=== PATIENT | female | born 1955 | race African-American/Black ===

== ENCOUNTER 2017-03-13 16:54 | Emergency (ER) | payer MEDICARE, MEDICAID ==
[~2017-03-13] VITALS: Ht 162.6 cm; Wt 70.0 kg
[~2017-03-13 16:54] MED LIST: ASCO100T12; DIOVAN; HYDROCODONE; LASIX; OMEPRAZOLE; OXYCODONE; POTASSIUM CHLORIDE; VITAMIN B12
[2017-03-13 17:04] VITALS: BP 155/82
== END 2017-03-13 18:11 | disposition left against medical advice (07) ==
LOC: ER 16:54
DX: R06.02 Shortness of breath (principal); Z53.21 Procedure and treatment not carried out due to patient leaving prior to being seen by health care provider

== ENCOUNTER 2017-06-13 12:34 | Emergency (ER) | payer MEDICARE, MEDICAID ==
[~2017-06-13] VITALS: Ht 167.6 cm; Wt 92.0 kg
[2017-06-13] MEDS ORDERED: IBUPROFEN 800MG TABLET PO ONE (13:30)
[2017-06-13 14:43] VITALS: BP 110/66
== END 2017-06-13 14:50 | disposition home or self-care (01) ==
LOC: ER 12:54
DX: M25.511 Pain in right shoulder (principal); K21.9 Gastro-esophageal reflux disease without esophagitis; M48.00 Spinal stenosis, site unspecified; Z96.649 Presence of unspecified artificial hip joint; Z96.659 Presence of unspecified artificial knee joint
CPT/HCPCS: 73030; 99284

== ENCOUNTER 2018-10-19 21:26 | Emergency (ER) | payer MEDICARE, MEDICAID ==
[~2018-10-19] VITALS: Ht 167.6 cm; Wt 91.0 kg
[~2018-10-19 21:26] MED LIST changes: +CIPR-264 PO; +GABA-531 PO; +LANS15CA12 PO; -LASIX; +NAPR220C15 PO
[2018-10-20 01:24] LABS: CHLORIDE 105 mEq/L (98-107)
[2018-10-20] MEDS ORDERED: HYDROCHLOROTHIAZIDE 12.5MG CAPSULE PO ONE (01:30)
[2018-10-20 01:34] LABS: BASOPHILS % 0.7 % (0.0-2.0); EOSINOPHILS % 0.1 % (0.0-5.0); HEMATOCRIT. 41.7 % (36.0-48.0); HEMOGLOBIN. 13.6 g/dL (12.0-16.0); LYMPHOCYTES % 19.5 % (20.0-50.0); MEAN CORPUSCULAR HEMOGLOBIN 27.7 pg (28.0-32.0); MEAN CORPUSCULAR VOLUME 84.6 fL (81.0-99.0); MEAN PLATELET VOLUME 10.8 fl (7.4-10.4); MONOCYTES % 5.7 % (2.0-8.0); PLATELET 210 x1000/uL (130-400); RED BLOOD CELL COUNT 4.93 mill/uL (4.2-5.4); RED CELL DISTRIBUTION WIDTH 15.6 % (11.6-14.6)
[2018-10-20] MEDS ORDERED: CLONIDINE 0.1MG TABLET PO ONE (02:00)
[2018-10-20 02:43] LABS: CLARITY URINE CLEAR (CLEAR); COLOR URINE YELLOW (YELLOW); KETONES URINE NEGATIVE (NEGATIVE); LEUKOCYTE ESTERASE URINE TRACE (NEGATIVE); NITRITE URINE NEGATIVE (NEGATIVE); OCCULT BLOOD URINE 1+ (NEGATIVE); PROTEIN URINE NEGATIVE (NEGATIVE); SPECIFIC GRAVITY URINE 1.021 (1.005-1.030); UROBILINOGEN URINE 0.2 E.U./dL (0.2-1.0)
[2018-10-20] MEDS ORDERED: DIPHENHYDRAMINE 50MG CAPSULE ONE (04:58)
[2018-10-20] MEDS ORDERED: ACETAMINOPHEN 325MG TABLET PO ONE (06:30)
[2018-10-20 08:16] VITALS: BP 177/78
[2018-10-20] MEDS ORDERED: LORATADINE 10MG TABLET PO ONE (09:00)
== END 2018-10-20 08:26 | disposition home or self-care (01) ==
LOC: ER 10-20 01:45
DX: I10 Essential (primary) hypertension (principal); M19.90 Unspecified osteoarthritis, unspecified site; K21.9 Gastro-esophageal reflux disease without esophagitis; Z88.2 Allergy status to sulfonamides; Z96.659 Presence of unspecified artificial knee joint
CPT/HCPCS: 36415; 80048; 81003; 85025; 99283; Q0163

== ENCOUNTER 2020-03-06 13:35 | Inpatient (IN) | payer MEDICARE, MEDICAID ==
[~2020-03-06] VITALS: Ht 167.6 cm; Wt 104.3 kg
[2020-03-06 19:06] LABS: BASOPHILS % 0.7 % (0.0-2.0); EOSINOPHILS % 0.1 % (0.0-5.0); HEMATOCRIT. 41.4 % (36.0-48.0); HEMOGLOBIN. 13.6 g/dL (12.0-16.0); MEAN CORPUSCULAR HEMOGLOBIN 27.9 pg (28.0-32.0); MEAN PLATELET VOLUME 10.1 fl (7.4-10.4); MONOCYTES % 6.3 % (2.0-8.0); NEUTROPHILS % 58.9 % (40.0-76.0); PLATELET 217 x1000/uL (130-400); RED BLOOD CELL COUNT 4.87 mill/uL (4.2-5.4); RED CELL DISTRIBUTION WIDTH 15.7 % (11.6-14.6)
[2020-03-06 19:25] LABS: CHLORIDE 99 mEq/L (98-107)
[2020-03-06] MEDS ORDERED: HYDROCODONE/ACETAMINOPHEN 5/325MG TABLET PO ONE (19:30)
[2020-03-06] MEDS ORDERED: AZITHROMYCIN 500 MG TABLET PO ONE (19:30)
[2020-03-06 19:34] LABS: BETA HYDROXYBUTYRATE 1.3 mMol/L (0.0-0.3)
[2020-03-07 00:36] LABS: CLARITY URINE CLEAR (CLEAR); COLOR URINE DARK YELLOW (YELLOW); KETONES URINE 2+ (NEGATIVE); LEUKOCYTE ESTERASE URINE TRACE (NEGATIVE); NITRITE URINE NEGATIVE (NEGATIVE); OCCULT BLOOD URINE NEGATIVE (NEGATIVE); PH URINE 5.5 (4.5-8.0); PROTEIN URINE 2+ (NEGATIVE); SPECIFIC GRAVITY URINE 1.027 (1.005-1.030); UROBILINOGEN URINE 0.2 E.U./dL (0.2-1.0)
[2020-03-07 00:49] LABS: *AMPHETAMINES SCREEN URINE NEGATIVE (NEGATIVE); CANNABINOID URINE SCREEN NEGATIVE (NEGATIVE)
[2020-03-07 00:50] LABS: *BARBITURATES SCREEN URINE NEGATIVE (NEGATIVE); *BENZODIAZEPINES SCREEN URINE NEGATIVE (NEGATIVE); *COCAINE SCREEN URINE NEGATIVE (NEGATIVE); METHADONE URINE SCREEN NEGATIVE (NEGATIVE); OPIATES URINE SCREEN PRESUMTIVE POSITIVE (NEGATIVE); PHENCYCLIDINE URINE SCREEN NEGATIVE (NEGATIVE)
[2020-03-07] MEDS ORDERED: CLONIDINE 0.1MG TABLET PO PRN (01:45)
[2020-03-07] MEDS ORDERED: MAGNESIUM/ALUMINUM HYDROXIDE/SIMETHICONE 30ML UDC PO PRN (01:45)
[2020-03-07] MEDS: HYDROCODONE/ACETAMINOPHEN 5/325MG TABLET PO PRN ×2 (01:47→12:43)
[2020-03-07] MEDS ORDERED: CEFTRIAXONE 1 G PREMIX 50 ML IV SCH (02:00)
[2020-03-07] MEDS: ONDANSETRON HCL 4MG/2ML INJ IV PRN (03:30)
[2020-03-07] MEDS: SODIUM CHLORIDE 0.45% 1,000 ML IV SCH ×2 (04:00→15:20)
[2020-03-07] MEDS: ENOXAPARIN 40MG/0.4ML SYR SUBCUT SCH (09:00)
[2020-03-07] MEDS: AMLODIPINE 10MG TABLET PO SCH (09:38)
[2020-03-07] MEDS ORDERED: AZITHROMYCIN 500 MG in DEXT 5% WATER 250 ML IV SCH (20:00)
[2020-03-07] MEDS: HYDROMORPHONE HCL/PF 2MG/ML CPJ IV PRN (21:12)
[2020-03-08] MEDS: SODIUM CHLORIDE 0.45% 1,000 ML IV SCH ×2 (00:48→17:46)
[2020-03-08] MEDS: ONDANSETRON HCL 4MG/2ML INJ IV PRN ×3 (00:48→21:18)
[2020-03-08] MEDS: HYDROMORPHONE HCL/PF 2MG/ML CPJ IV PRN ×4 (01:00→17:45)
[2020-03-08 01:30] VITALS: BP 150/65
[2020-03-08] MEDS ORDERED: HYDR-3280 MT (01:43)
[2020-03-08 08:00] VITALS: BP 135/58
[2020-03-08] MEDS: CEFTRIAXONE 1,000 MG in DEXTROSE 5% WATER 50 ML IV SCH (08:20)
[2020-03-08] MEDS: ENOXAPARIN 40MG/0.4ML SYR SUBCUT SCH (08:40)
[2020-03-08 09:51] LABS: BASOPHILS % 0.8 % (0.0-2.0); EOSINOPHILS % 0.1 % (0.0-5.0); HEMOGLOBIN. 12.7 g/dL (12.0-16.0); LYMPHOCYTES % 36.5 % (20.0-50.0); MEAN CORPUSCULAR HEMOGLOBIN 27.8 pg (28.0-32.0); MEAN CORPUSCULAR VOLUME 85.3 fL (81.0-99.0); MEAN PLATELET VOLUME 10.3 fl (7.4-10.4); MONOCYTES % 7.1 % (2.0-8.0); NEUTROPHILS % 55.5 % (40.0-76.0); PLATELET 210 x1000/uL (130-400); RED BLOOD CELL COUNT 4.57 mill/uL (4.2-5.4); RED CELL DISTRIBUTION WIDTH 15.5 % (11.6-14.6)
[2020-03-08 10:05] LABS: CHLORIDE 99 mEq/L (98-107)
[2020-03-08] MEDS: AMLODIPINE 10MG TABLET PO SCH (11:26)
[2020-03-08 12:00] VITALS: BP 141/53
[2020-03-08 16:00] VITALS: BP 157/68
[2020-03-08 20:00] VITALS: BP 139/55
[2020-03-08] MEDS: ENOXAPARIN 30MG/0.3ML SYR SUBCUT SCH (21:00)
[2020-03-08] MEDS: AZITHROMYCIN 500 MG TABLET PO SCH (21:18)
[2020-03-08] MEDS: ACETAMINOPHEN 325MG TABLET PO PRN (21:19)
[2020-03-09] VITALS: BP 114/60
[2020-03-09] MEDS: HYDROMORPHONE HCL/PF 2MG/ML CPJ IV PRN ×3 (00:42→10:40)
[2020-03-09] MEDS: SODIUM CHLORIDE 0.45% 1,000 ML IV SCH (00:43)
[2020-03-09 04:00] VITALS: BP 132/80
[2020-03-09] MEDS: ONDANSETRON HCL 4MG/2ML INJ IV PRN ×2 (06:59→18:08)
[2020-03-09 08:00] VITALS: BP 133/61
[2020-03-09] MEDS: CEFTRIAXONE 1,000 MG in DEXTROSE 5% WATER 50 ML IV SCH (08:54)
[2020-03-09] MEDS: ENOXAPARIN 30MG/0.3ML SYR SUBCUT SCH ×2 (08:55→20:34)
[2020-03-09] MEDS: AMLODIPINE 10MG TABLET PO SCH (08:55)
[2020-03-09 12:00] VITALS: BP 144/69
[2020-03-09 16:00] VITALS: BP 145/57
[2020-03-09] MEDS: ACETAMINOPHEN 325MG TABLET PO PRN (18:08)
[2020-03-09] MEDS: KETOROLAC 15MG/ML VIAL IV PRN (19:23)
[2020-03-09 20:00] VITALS: BP 120/55
[2020-03-09] MEDS: AZITHROMYCIN 500 MG TABLET PO SCH (20:33)
[2020-03-10] VITALS: BP 115/60
[2020-03-10] MEDS: HYDROCODONE/ACETAMINOPHEN 5/325MG TABLET PO PRN (01:59)
[2020-03-10] MEDS: SODIUM CHLORIDE 0.45% 1,000 ML IV SCH ×2 (02:00→09:54)
[2020-03-10 04:00] VITALS: BP 116/50
[2020-03-10 08:00] VITALS: BP 120/40
[2020-03-10] MEDS: CEFTRIAXONE 1,000 MG in DEXTROSE 5% WATER 50 ML IV SCH (09:41)
[2020-03-10] MEDS: KETOROLAC 15MG/ML VIAL IV PRN (09:42)
[2020-03-10] MEDS: AMLODIPINE 10MG TABLET PO SCH (09:42)
[2020-03-10] MEDS: ENOXAPARIN 30MG/0.3ML SYR SUBCUT SCH (09:42)
[2020-03-10 12:00] VITALS: BP 116/41
== END 2020-03-10 14:30 | disposition home or self-care (01) | DRG 177 ==
LOC: ER 13:35 → MICUSO 20:59 → EDBEDREQ 21:02 → EDBEDREQTM 21:02 → 8WST 03-07 23:51
PROVIDERS: ADMIT Hospitalist; ATTEND Hospitalist
DX: U07.1 COVID-19 (principal); J12.89 Other viral pneumonia; M19.90 Unspecified osteoarthritis, unspecified site; I10 Essential (primary) hypertension; K21.9 Gastro-esophageal reflux disease without esophagitis; E66.9 Obesity, unspecified; Z96.659 Presence of unspecified artificial knee joint; Z68.37 Body mass index [BMI] 37.0-37.9, adult; Z87.440 Personal history of urinary (tract) infections; Z88.8 Allergy status to other drugs, medicaments and biological substances; Z79.891 Long term (current) use of opiate analgesic; Z79.899 Other long term (current) drug therapy; Z79.2 Long term (current) use of antibiotics
CPT/HCPCS: 36415; 71045; 74176; 80053; 80305; 81003; 82010; 83605; 83880; 84145; 84484; 85025; 87635; 93005; 93970; 99285; J0456; J0696; J1170; J1650; J1885; J2405; J7060

== ENCOUNTER 2023-12-04 20:12 | Emergency (ER) | payer MEDICARE, MEDICAID ==
[~2023-12-04] VITALS: Ht 170.2 cm; Wt 91.0 kg
[~2023-12-04 20:12] MED LIST changes: -DIOVAN; -GABA-531 PO; +HYDR-4350 MT; -HYDROCODONE
[2023-12-04 20:14] VITALS: TEMP 97.7; O2SAT 96
[2023-12-04] MEDS: KETOROLAC 15MG/ML VIAL IM ONE (22:37)
[2023-12-04] MEDS: CYCLOBENZAPRINE 10MG TABLET PO STA (22:37)
[2023-12-05] MEDS ORDERED: NAPR-681 MT (00:31)
[2023-12-05] MEDS ORDERED: CYCL10TA21 MT (00:31)
[2023-12-05 01:24] VITALS: BP 180/65; PULSE 64; RESP 20; O2SAT 100
== END 2023-12-05 01:26 | disposition home or self-care (01) ==
LOC: ER 20:12
DX: M54.42 Lumbago with sciatica, left side (principal); M54.41 Lumbago with sciatica, right side; K21.9 Gastro-esophageal reflux disease without esophagitis; I10 Essential (primary) hypertension; Z87.440 Personal history of urinary (tract) infections; Z79.899 Other long term (current) drug therapy
CPT/HCPCS: 99283; 96372; J1885